=== PATIENT | female | born 1965 | race Caucasian/White ===

== ENCOUNTER 2016-10-20 22:35 | Emergency (ER) | payer MEDICAID ==
[2016-10-20 22:46] VITALS: BP 131/69
--- NOTE | 2016-10-20 22:52 | ERNOTE ---
Back Pain ER HPI Presenting Symptoms: injury/pain to back Time Seen by Provider: 10/20/16 22:51 Source: patient Exam Limitations: no limitations Immunizations: IMMUNIZATION HX Immunizations Up to Date Yes History of Influenza Vaccine No Hx Pneumococcal Vaccination No Allergies/Adverse Reactions: Allergies acetaminophen [From Vicodin] Allergy (Verified 09/19/15 12:24) aspirin Allergy (Verified 09/19/15 12:24) cephalexin monohydrate [From Keflex] Allergy (Verified 09/19/15 12:24) cortisone [Cortisone] Allergy (Verified 09/19/15 12:24) hydrocodone bitartrate [From Vicodin] Allergy (Verified 09/19/15 12:24) ketorolac tromethamine [From Toradol] Allergy (Verified 09/19/15 12:24) latex Allergy (Verified 09/19/15 12:24) morphine Allergy (Verified 09/19/15 12:24) NSAIDS (Non-Steroidal Anti-Inflamma Allergy (Verified 09/19/15 12:24) Penicillins Allergy (Verified 09/19/15 12:24) Salicylates * [Salicylates] Allergy (Verified 09/19/15 12:24) tramadol Allergy (Verified 09/19/15 12:24) ciprofloxacin [From Cipro] Adverse Reaction (Verified 09/19/15 12:24) Hives ciprofloxacin HCl [From Cipro] Adverse Reaction (Verified 09/19/15 12:24) Hives doxycycline Adverse Reaction (Verified 09/19/15 12:24) Hives dye Allergy (Uncoded 09/19/15 12:24) Home Medications: HOME MEDICATIONS Flexeril 02/04/16 [Last Taken Unknown] clonazePAM [Klonopin] 0.5 mg PO PRN 10/20/16 [Last Taken Unknown] Narrative: pt was bending over cleaning the bathroom and felt pop in her back. She now has muscle spasms and pain in her lower back Timing: Reports: constant Quality/Severity: Reports: moderate, severe Location of pain: Reports: lower back, no radiation Activities at Onset: Reports: activity Recent Injury?: Reports: no Possible Precipitating Factor: Reports: turning/bending Modifying Factors - (Improves): Reports: supine position Modifying Factors - (Worsens): Reports: movement flexion Review of Systems - Review of Systems Constitutional: Present: no symptoms reported EYE: Present: no symptoms reported ENT: Present: no symptoms reported Respiratory: Present: no symptoms reported Cardiology: Present: no symptoms reported Gastrointestinal/Abdominal: Present: no symptoms reported Genitourinary: Present: no symptoms reported Musculoskeletal: Present: back pain, muscle pain, muscle stiffness Skin: Present: no symptoms reported Neurological: Absent: weakness, numbness Endocrine: Present: no symptoms reported Hematologic/Lymphatic: Present: no symptoms reported Psych: Present: no symptoms reported - Patient's Past Medical History Patient History - Medical: Anxiety, Depression, Other - low back pain, has seen pain management but is allergic to cortisone, they state they can do nothing for her Patient History - Cardiac/Respiratory: Asthma Patient History - Cancer: No Hx of Cancer Patient History - Surgical Procedures: Noncontributory, Hysterectomy Patient History - Other: None LMP (females 10-50): Menopausal - Social History Living Situations: home Abuse History: No History of abuse Psych History: Hx of Anxiety, Hx of Depression Does anyone smoke in the home?: Yes Smoking Status: Current every day smoker Have you smoked in the past 12 months: Yes Do you dip or chew tobacco: No Patient requests Smoking Cessation Consult: No Initiate information on Smoking Cessation: No Alcohol Use: none Drug Use: none - Immunizations Immunizations Up to Date: Yes Hx Pneumococcal Vaccination: No History of Influenza Vaccine: No Physical Exam - Physical Exam General Appearance: Present: wd/wn, alert, no apparent distress Eye Exam: Normal inspection: bilateral Respiratory: Present: no respiratory distress, no accessory muscle use Back Exam: Present: normal range of motion, muscle spasm - right paraspinal with mild muscular tenderness Extremity Exam: Present: normal inspection, non-tender, normal range of motion Neurological Exam: Present: alert, oriented, normal mood/affect, no motor/ sensory deficits Skin Exam: Present: normal color, warm/dry ED Progress - Vital Signs Vital Signs: Vital Signs 10/20/16 22:40 Temperature 36.3 C L Pulse Rate 82 Respiratory 16 Rate Blood Pressure 131/69 O2 Sat by Pulse 98 Oximetry - Progress/Reassessment Chief Complaint: Back Pain Progress Note-Subjective: Emergent patients arrived by ambulance while patient was waiting for treatment. Pt decided she did not want to wait any longer and signed out AMA. Departure Clinical Impression: Low back pain Qualifiers: Chronicity: chronic Back pain laterality: right Sciatica presence: without sciatica Qualified Code(s): M54.5 - Low back pain; G89.29 - Other chronic pain - Departure Disposition: Against medical advice Referrals: Zuleyka Teran FNP [Primary Care Provider] -
--- OUTSIDE RECORDS SUMMARY | 2016-10-20 22:58 | XMS REPORT | Continuity of Care Document ---
:1965 Author Organization [facility] ([facility]) Address [place] [address] Phone [phone] Care Team Providers Name Role Phone Qasim Gallardo Primary Care Provider [phone] Source Comments This disclosure is being made pursuant to the Care Everywhere program, applicable federal and state laws, and may not contain all informaitonavailable regarding this patient.[facility] ([facility]) Active Allergies and Adverse Reactions Allergen Noted Date Severity Reactions Comments Aspirin 06/03/2016 OTHER Intensifies pain Cephalexin 06/03/2016 Hypertension Ciprofloxacin 06/03/2016 Nausea & Vomiting Cortisone 06/03/2016 Angioedema Cotrim 06/03/2016 OTHER Upset stomach Diphenhydramine Hcl 06/03/2016 Urticaria (Hives) Hydrocodone-Acetaminophe 06/03/2016 Nausea & Vomiting n Hydromorphone (Pf) 06/03/2016 Urticaria (Hives) Ibuprofen 06/03/2016 OTHER Upset stomach Ketorolac 06/03/2016 Hallucinations Morphine 06/03/2016 Hallucinations Naproxen 06/03/2016 OTHER Stomach upset Neosporin 06/03/2016 Urticaria (Hives) (Neomycin-Polymyx) Nsaids (Non-Steroidal 06/03/2016 Nausea & Anti-Inflammatory Drug) Vomiting,Headache Other Agent 06/03/2016 Nausea & Vomiting Ciprofloxacin HCI Penicillin 06/03/2016 Urticaria (Hives) Pseudoephedrine Hcl 06/03/2016 Hypertension Heart palpitations Salicylates 06/03/2016 Nausea & Vomiting,Headache Tramadol 06/03/2016 Urticaria (Hives) Current Medications Prescription Sig. Disp. Refills Start Date End Date Status cyclobenzaprine (FLEXERIL) Take 1 Tab by 90 Tab 3 08/05/2010 Active 10 mg tablet mouth every 8 hours as needed. Indications: Muscle Spasm acetaminophen 325 mg Take 325 mg by Active tablet mouth every 4 hours as needed. Active Problems Not on file Most Recent Encounters Date Type Specialty Providers Description 07/31/2016 Office Visit Anesthesiology Moreno Lassiter MD Chief Comp: Patient Reported Reason For Visit Social History Tobacco Use Types Packs/Day Years Used Date Light Tobacco Smoker Cigarettes 0.5 17 Smokeless Tobacco: Never Used Alcohol Use Drinks/Week oz/Week Comments No socially Last Filed Vital Signs Vital Sign Reading Time Taken Blood Pressure 126/69 06/03/2016 2:30 PM CDT Pulse 87 06/03/2016 2:30 PM CDT Temperature 36 C (96.8 F) 06/03/2016 2:30 PM CDT Respiratory Rate - - Height 1.59 m (5' 2.6") 06/03/2016 2:30 PM CDT Weight 78.4 kg (172 lb 13.5 oz) 06/03/2016 2:30 PM CDT Body Mass Index 31.01 06/03/2016 2:30 PM CDT Oxygen Saturation - - Plan of Care Health Maintenance Due Date Last Done Comments HCV Screening 1965 Hepatitis B Vaccine (1 of 3 - Primary Series) 1965 Tdap Vaccine 1975 Lipid Disorder Screening 1982 MMR Vaccine 1982 Td Vaccine 1982 Pneumococcal Vaccine (1 of 1 - PPSV23) 1983 Cervical Cancer Screening 1994 Mammogram 2004 Colonoscopy 2014 Influenza Vaccine: Seasonal (#1) 03/16/2016 Results from Last 3 Months Not on file
== END 2016-10-20 23:50 | disposition left against medical advice (07) ==
LOC: ER 22:35
DX: M54.5 Low back pain (principal); G89.29 Other chronic pain; Z72.0 Tobacco use